=== PATIENT | female | born 1985 | race Caucasian/White ===

== ENCOUNTER 2022-06-25 03:28 | Inpatient (IN) ==
[2022-06-25 04:19] LABS: Basophils # (auto) 0.05 K/uL (0-0.2); Basophils % (auto) 0.5 %; Eosinophils # (auto) 0.01 K/uL (0-0.50); Eosinophils % (auto) 0.1 %; Hematocrit (blood only) 42.8 % (34.1-44.9); Hemoglobin 14.4 g/dl (12.0-16.0); Immature Granulocytes # (auto) 0.02 K/uL (0.00-0.02); Immature Granulocytes % (auto) 0.2 %; Lymphocytes # (auto) 2.01 K/uL (1.2-3.4); Lymphocytes % (auto) 21.8 %; Mean Corpuscular Hemoglobin 29.3 pg (25.0-34.0); Mean Corpuscular Hgb Conc 33.6 g/dL (32.0-36.0); Mean Platelet Volume 9.7 fL (9.4-12.3); Monocytes # (auto) 0.49 K/uL (0.24-0.82); Monocytes % (auto) 5.3 %; Neutrophils # (auto) 6.63 K/uL (1.4-6.5); Neutrophils % (auto) 72.1 %; Platelet Count 316 K/uL (130-400); RDW Coefficient of Variation 12.9 % (11.5-14.5); RDW Standard Deviation 41.7 fL (36.4-46.3); Red Blood Count 4.92 M/uL (3.93-5.22); White Blood Count 9.21 K/ul (4.8-10.8)
[2022-06-25] MEDS ORDERED: SODIUM CHLORIDE 0.9% 1000ML 500 ML IV ONE (04:35)
[2022-06-25] MEDS ORDERED: SODIUM CHLORIDE 0.9% 500 ML IV ONE (04:42)
[2022-06-25 04:45] LABS: Albumin Globulin Ratio 1.6 (0.9-2); Albumin Level 4.8 gm/dl (3.4-5.0); BUN Creatinine Ratio 22.8 (10-20); Bilirubin,Total 1.2 mg/dl (0.2-1.0); Calcium 9.5 mg/dl (8.5-10.1); Creatinine Clr Calc Pharmacy 130.2 ml/min; Est GFR (African American) 140.2 ml/min; Potassium 3.4 mmol/L (3.5-5.1); Total Protein 7.8 gm/dl (6.0-8.3)
[2022-06-25 04:50] LABS: Acetaminophen < 3 ug/ml (10-30); Salicylate < 3.0 mg/dl (3.0-30)
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
[2022-06-25] MEDS ORDERED: fentaNYL citrate 100 MCG/2 ML VIAL IV STA (06:10)
[2022-06-25 06:40] LABS: Appearance Urine Cloudy (Clear); Bacteria Urine Automated 1+ (Negative); Bilirubin Urine Negative (Negative); Blood Urine Trace (Negative); Color Urine Yellow; Epithelial Cell Urine Auto >30 /lpf (0-5); Glucose Urine UA Negative (Negative); Ketones Urine Trace (Negative); Leukocyte Esterase Urine Negative (Negative); Nitrite Urine Negative (Negative); Protein Urine Negative (Negative); RBC Urine Automated 0-4 /hpf (0-4); Specific Gravity Urine 1.025 (1.000-1.030); Urobilinogen Urine Negative (Negative); pH Urine 5.5 (4.5-7.5)
[2022-06-25 07:21] LABS: Amphetamines+Metham, Urine Neg (Neg); Barbiturates, Urine Neg (Neg); Benzodiazepine, Urine Neg (Neg); Cocaine, Urine Neg (Neg); MDMA (Ecstacy), Urine Neg (Neg); Methadone, Urine Neg (Neg); Opiate, Urine Pos (Neg); Phencyclidine, Urine Neg (Neg)
[2022-06-25 08:23] LABS: Pregnancy Test, Serum Negative (Negative)
[2022-06-25] MEDS ORDERED: hydrOXYzine HCl 25 MG TAB PO PRN ×2 (09:42)
[2022-06-25] MEDS ORDERED: SODIUM CHLORIDE 0.65% NA SOLN 45 ML (OCEAN) PRN (09:42)
[2022-06-25] MEDS ORDERED: ALUMINUM/MAGNESIUM SUSP 30 ML UDC PO PRN (09:42)
[2022-06-25] MEDS ORDERED: MAGNESIUM HYDROXIDE SUSP 30 ML UDC PO PRN (09:42)
[2022-06-25] MEDS ORDERED: BISMUTH SUBSALICYLATE LIQD 236 ML PO PRN (09:42)
[2022-06-25] MEDS ORDERED: ALPRAZolam 0.5 MG TABLET PO STA ×2 (10:42→10:46)
[2022-06-25] MEDS ORDERED: ALPRAZolam 0.5 MG TABLET PO PRN ×2 (10:43→11:21)
[2022-06-25] MEDS ORDERED: Ativan PO Alcohol Withdrawal--Active Protocol PO PRN (11:22)
[2022-06-25] MEDS ORDERED: LORazepam 1 MG TAB PO PRN ×3 (11:22)
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
--- NOTE | 2022-06-25 14:02 | Emergency Department Note ---
ED Visit Note I received this patient in signout at the change of shift from Dr. Paula pending evaluation from 3 S. for inpatient psychiatric admission. The patient was excepted on a voluntary basis for inpatient care. Patient was given 0.5 mg of Xanax orally at the request of psychiatry. Please refer to previous documentation for further details of the history, physical and visit. .
--- NOTE | 2022-06-25 15:27 | Electrocardiogram Report ---
Test Reason : Blood Pressure : / mmHG Vent. Rate : 086 BPM Atrial Rate : 086 BPM P-R Int : 118 ms QRS Dur : 092 ms QT Int : 374 ms P-R-T Axes : 039 053 029 degrees QTc Int : 447 ms Sinus rhythm with marked sinus arrhythmia Diffuse Minor Nonspecific ST and T wave abnormality Abnormal ECG No previous ECGs available Confirmed by Ziggy Austin ([id number]) on 06/25/2022 3:27:16 PM Referred By: REFERRED SELF Confirmed By:Ziggy Austin
[2022-06-26] MEDS: LITHIUM CARBONATE 300 MG TAB PO SCH ×2 (13:53→20:48)
--- NOTE | 2022-06-26 15:26 | Psychiatric Progress Note ---
Date of Service June 26, 2022 Impression / Recommendations Impression 36 yo female with a hx of PTSD, depression, emotional dysregulation and poor response to medications which could suggest bipolar spectrum disorder. Presentation remains paranoia and tangential with pressured speech c/w funmilayo. (1) Bipolar 1 disorder: (2) Suicide attempt by drug overdose: (3) Anxiety disorder, unspecified: (4) Posttraumatic stress disorder: Plan 06/26/22: Risks/benefits/alternatives reviewed lithium for mood stabilization. Discussion included but was not limited to risks of toxicity in overdose and need for ongoing blood monitoring (levels, kidney function, and thyroid). The patient was made aware to avoid regular use of NSAIDs as can increase levels and that lithium may need to be held during GI or other illnesses that result in d ehydration. Discussed teratogenecity and would advise reliable control. At this point she is only agreeable to take 150 mg BID and reevaluate dosing of lithium tomorrow. Will defer EKG as paranoid and age is <40. 06/25/22: The patient was admitted to the [facility] ([facility] mental health unit) on q15 min checks (behavioral with suicide precautions) for safety. The patient will participate in group, recreational, and milieu therapies and will be offered additional individual and family sessions as clinically appropriate. Patient was in need of immediate prn to ease transition to unit pending additional history/discussion. Given Xanax 0.5 mg q6 hr prn for anxiety with benefit. MNPR given emotional lability and need to further delineate degree of paranoia associated with probable complex PTSD. AWSS protocol for monitoring as patient unable to give accurate hx at this time. Inventory Assets Strengths: family support, knowledgeable re: medications Needs: medication management, improve coping Suicide Risk Level Suicide Risk Level: High-Moderate (q15 min suicide checks) Risk Factors Assessment : Yes Do You Have Access To A Gun?: Yes (at least in past per mother, need to confirm) Mental Health Diagnoses: Yes Previous Attempt: Yes Previous Psychiatric Hospitalization: Yes Protective Factors Assessment Employed: No Supportive Family: Yes Interval History Identifying Information ALLISON BIGGS is a 36-year-old F from [place], has a history of a prior suicide attempt, and was admitted on 06/25/22 09:42 on a 201 voluntary commitment following an intentional OD. Chief Complaint "I just can't trust, wait did we talk about that? I want to make sure I maintain all my rights, is this being video taped?" Review of Systems Sleep Information Total Hours of Sleep: 7.75 Meal Information Percent Meal Consumed - Breakfast: 90 Percent Meal Consumed - Lunch: 75 Percent Meal Consumed - Dinner: 90 Subjective Subjective Patient was seen & assessed and interval progress reviewed with nursing and social work. No evidence of ETOH withdrawal. Has been paranoid, tangential, and hyperverbal. slept 7 3/4 hr. Patient asked if we can get her a new social security number but added she's not in witness protection. 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 Disorganized and hard to follow. After extensive discussion around medication consent asked nurse if someone was going to talk with her about the medication. She reconsented for lithium trial. Physical Exam Psychiatric Orientation: alert Apperance: + disheveled Eye Contact: + fair eye contact Motor Behavior: no abnormal motor movements Speech: + pressured speech Affect: + depressed affect and + tearful affect Mood: + depressed mood and + anxious mood Thought Process: + tangential thought process Thought Content: + paranoid Suicidal Thoughts: + reports suicidal thoughts (but no intent/plan on unit) Homicidal Thoughts: denies homicidal thoughts Hallucinations: no auditory hallucinations and no visual hallucinations Cognition: language grossly intact; + attention not intact Estimated Intelligence: consistent with education level Insight: + limited insight Judgement: + limited judgement Vital Signs (Past 24 Hours) Last Vital Signs Temp 37.0 C 06/26/22 10:15 Pulse 70 06/26/22 10:15 Resp 20 06/26/22 10:15 BP 125/84 06/26/22 10:15 Pulse Ox 99 06/26/22 10:15 O2 Del Method 06/26/22 10:15 Results & Data ([facility]) Current Inpatient Medications Current Inpatient Medications: Current Inpatient Medications Acetaminophen (Acetaminophen 325 Mg Tab) 650 mg PO Q4H PRN PRN Reason: Headache or Minor Fever Stop: 07/25/22 09:41 Al Hydrox/Mg Hydrox/Simethicone (Aluminum/Magnesium Susp 30 Ml Udc) 30 ml PO Q4H PRN PRN Reason: GI Upset Stop: 07/25/22 09:41 Alprazolam (Alprazolam 0.5 Mg Tablet) 0.5 mg PO Q6H PRN PRN Reason: Anxiety Stop: 07/25/22 11:20 Bismuth Subsalicylate (Bismuth Subsalicylate Liqd 236 Ml) 15 ml PO PRN PRN PRN Reason: Loose Stool Stop: 07/25/22 09:41 Hydroxyzine HCl (Hydroxyzine Hcl 25 Mg Tab) 50 mg PO HSZ PRN PRN Reason: Insomnia Stop: 07/25/22 09:41 Hydroxyzine HCl (Hydroxyzine Hcl 25 Mg Tab) 25 mg PO Q4H PRN PRN Reason: Anxiety Stop: 07/25/22 09:41 [place] Carbonate ([place] Carbonate 300 Mg Tab) 150 mg PO BID [place] Stop: 07/26/22 12:59 Last Admin: 06/26/22 13:53 Dose: 150 mg Magnesium Hydroxide (Magnesium Hydroxide Susp 30 Ml Udc) 30 ml PO DAILY PRN PRN Reason: Constipation Stop: 07/25/22 09:41 Sodium Chloride (Sodium Chloride 0.65% Na Soln 45 Ml ([place])) 1 - 2 sprays NA PRN PRN PRN Reason: Nasal Dryness/Congestion Stop: 07/25/22 09:41 Post Discharge Appointments Primary Care Physician Name Of Family Doctor: Fawn Mares
[2022-06-26] MEDS: ACETAMINOPHEN 325 MG TAB PO PRN (18:34)
[2022-06-27] MEDS: LITHIUM CARBONATE 300 MG TAB PO SCH ×2 (07:43→15:11)
[2022-06-27 08:42] LABS: Codeine Urine NEGATIVE ng/mL (<50); Hydrocodone Urine NEGATIVE ng/mL (<50); Hydromor Urine NEGATIVE ng/mL (<50); Morphine Urine NEGATIVE ng/mL (<50); Norhydrocodone Conf Ur NEGATIVE ng/mL (<50); Noroxycodone Urine >10000 ng/mL (<50); Oxycodone Urine >10000 ng/mL (<50); Oxymorph Urine 589 ng/mL (<50)
[2022-06-27] MEDS: ALPRAZolam 0.25 MG TABLET PO PRN ×2 (10:50→23:48)
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
[2022-06-27] MEDS ORDERED: LITHIUM CARBONATE SLOW REL 300 MG TAB PO SCH (22:00)
[2022-06-27] MEDS: ACETAMINOPHEN 325 MG TAB PO PRN (23:48)
[2022-06-28] MEDS: LITHIUM CARBONATE 300 MG TAB PO SCH (08:36)
[2022-06-28] MEDS ORDERED: LITHIUM CARBONATE 300 MG TAB PO ONE (10:36)
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
[2022-06-28] MEDS: LORazepam 0.5 MG TAB PO PRN (13:46)
[2022-06-28] MEDS: LITHIUM CARBONATE 450 MG TABCR PO SCH (21:20)
[2022-06-28] MEDS: LORazepam 0.5 MG TAB PO SCH (21:21)
[2022-06-29] MEDS: LITHIUM CARBONATE 450 MG TABCR PO SCH ×2 (09:04→20:27)
[2022-06-29] MEDS: ACETAMINOPHEN 325 MG TAB PO PRN ×2 (13:30→18:27)
--- NOTE | 2022-06-29 17:18 | Psychiatric Progress Note ---
Date of Service June 29, 2022 Impression / Recommendations Impression 36 yo female with a hx of PTSD, depression, emotional dysregulation and poor response to medications which could suggest bipolar spectrum disorder. Presentation remains paranoia and tangential with pressured speech c/w funmilayo vs mixed state presentation of BPAD versus complex PTSD. MNPR due to poor boundaries, history of trauma/uncomfortable around others 06/29/22: still with funmilayo but sleep improving a bit, still with difficulty with boundaries with peers. Tolerating higher dose of [place] and switch to lorazepam. (1) Bipolar 1 disorder: (2) Suicide attempt by drug overdose: (3) Anxiety disorder, unspecified: (4) Posttraumatic stress disorder: Plan 06/29/22: Continue with current medications and tx plan. 06/28/22: Increase [place] to 450mg BID, will get level on 07/03/22. Discontinue xanax and start ativan 0.25mg daily prn and 0.5mg qhs given history of significant sedation from 1mg of lorazepam in the past. 06/27/22: remains very selective re: medication due to paranoia, after much discussion she agreed to titrate lithium to 600 mg today, prefers to take 150 mg BID then 300 mg later hs at this time. Seems more comfortable to take Xanax regularly if has option of 0.25 mg dose. Patient is adamant that won't take atypical. Would check lithium level day 5 of 900 mg daily. 06/26/22: Risks/benefits/alternatives reviewed lithium for mood stabilization. Discussion included but was not limited to risks of toxicity in overdose and need for ongoing blood monitoring (levels, kidney function, and thyroid). The patient was made aware to avoid regular use of NSAIDs as can increase levels and that lithium may need to be held during GI or other illnesses that result in dehydration. Discussed teratogenecity and would advise reliable control. At this point she is only agreeable to take 150 mg BID and reevaluate dosing of lithium tomorrow. Will defer EKG as paranoid and age is <40. 06/25/22: The patient was admitted to the [facility] ([facility] mental health unit) on q15 min checks (behavioral with suicide precautions) for safety. The patient will participate in group, recreational, and milieu therapies and will be offered additional individual and family sessions as clinically appropriate. Patient was in need of immediate prn to ease transition to unit pending additional history/discussion. Given Xanax 0.5 mg q6 hr prn for anxiety with benefit. MNPR given emotional lability and need to further delineate degree of paranoia associated with probable complex PTSD. AWSS protocol for monitoring as patient unable to give accurate hx at this time. Inventory Assets Strengths: family support, knowledgeable re: medications Needs: medication management, improve coping Suicide Risk Level Suicide Risk Level: High-Moderate (q15 min suicide checks) (suicide attempt prior to admission and impulsivity given funmilayo but feels safe here and agrees to alert nursing should she develop SI with plan or intent or feel unable to remain safe here) Risk Factors Assessment : Yes Do You Have Access To A Gun?: Yes (at least in past per mother, need to confirm) Mental Health Diagnoses: Yes Previous Attempt: Yes Previous Psychiatric Hospitalization: Yes Protective Factors Assessment Employed: No Supportive Family: Yes Interval History Identifying Information VANIA BIGGS is a 36-year-old F from [place], has a history of a prior suicide attempt, and was admitted on 06/25/22 09:42 on a 201 voluntary commitment following an intentional OD. Chief Complaint "I'm a lot of different things, just sorting everything out". Review of Systems Sleep Information Total Hours of Sleep: 6.5 Sleep Comments: Meal Information Percent Meal Consumed - Breakfast: 75 Percent Meal Consumed - Lunch: 100 Percent Meal Consumed - Dinner: 100 Subjective Subjective Patient was seen & assessed and interval progress reviewed with treatment team nursing and social work. RN present during meeting with Vania per her preference. She feels she slept better with lorazepam last night. No side effects from lorazepam nor from higher dose of [place]. No tremor. She remains uncertain that BPAD is an accurate diagnosis especially given recent trauma but agrees that [place] is working well and wants to continue this. Very talkative and distracts peers at times but getting better at staying on task. Continues to have some loosening of associations telling me "I don't want to drown (regarding financial stressors), I was a great swimmer and did half iron Man competitions". Kindly got pizzas for peers on the unit last night. Continues to have challenging boundaries at times offering to a peer who is having [employer] issues. Physical Exam Psychiatric Orientation: alert and oriented x 3 Apperance: appropriately groomed and + disheveled Eye Contact: + fair eye contact Motor Behavior: no abnormal motor movements Speech: + pressured speech and normal rate/rhythm/volume of speech Affect: + depressed affect and + labile affect Mood: + depressed mood and + anxious mood Thought Process: + tangential thought process Thought Content: + preoccupation and + paranoid Suicidal Thoughts: + reports suicidal thoughts (but no intent/plan on unit) Homicidal Thoughts: denies homicidal thoughts Hallucinations: no auditory hallucinations and no visual hallucinations Cognition: language grossly intact; + attention not intact Estimated Intelligence: consistent with education level Insight: + limited insight Judgement: + limited judgement Vital Signs (Past 24 Hours) Last Vital Signs Temp 36.8 C 06/29/22 06:44 Pulse 98 H 06/29/22 06:44 Resp 16 06/29/22 06:44 BP 108/70 06/29/22 06:44 Pulse Ox 97 06/27/22 06:00 O2 Del Method 06/27/22 06:00 Results & Data ([facility]) Current Inpatient Medications Current Inpatient Medications: Current Inpatient Medications Acetaminophen (Acetaminophen 325 Mg Tab) 650 mg PO Q4H PRN PRN Reason: Headache or Minor Fever Stop: 07/25/22 09:41 Last Admin: 06/29/22 13:30 Dose: 650 mg Al Hydrox/Mg Hydrox/Simethicone (Aluminum/Magnesium Susp 30 Ml Udc) 30 ml PO Q4H PRN PRN Reason: GI Upset Stop: 07/25/22 09:41 Bismuth Subsalicylate (Bismuth Subsalicylate Liqd 236 Ml) 15 ml PO PRN PRN PRN Reason: Loose Stool Stop: 07/25/22 09:41 Hydroxyzine HCl (Hydroxyzine Hcl 25 Mg Tab) 50 mg PO HSZ PRN PRN Reason: Insomnia Stop: 07/25/22 09:41 Last Admin: 06/28/22 02:54 Dose: 50 mg Hydroxyzine HCl (Hydroxyzine Hcl 25 Mg Tab) 25 mg PO Q4H PRN PRN Reason: Anxiety Stop: 07/25/22 09:41 [place] Carbonate ([place] Carbonate 450 Mg Tabcr) 450 mg PO BID CATRACHITO Stop: 07/28/22 20:59 Last Admin: 06/29/22 09:04 Dose: 450 mg Lorazepam (Lorazepam 0.5 Mg Tab) 0.5 mg PO HS [place]ITO Stop: 07/28/22 21:59 Last Admin: 06/28/22 21:21 Dose: 0.5 mg Lorazepam (Lorazepam 0.5 Mg Tab) 0.25 mg PO DAILY PRN PRN Reason: Anxiety Stop: 07/28/22 10:35 Last Admin: 06/28/22 13:46 Dose: 0.25 mg Magnesium Hydroxide (Magnesium Hydroxide Susp 30 Ml Udc) 30 ml PO DAILY PRN PRN Reason: Constipation Stop: 07/25/22 09:41 Sodium Chloride (Sodium Chloride 0.65% Na Soln 45 Ml ([place])) 1 - 2 sprays NA PRN PRN PRN Reason: Nasal Dryness/Congestion Stop: 07/25/22 09:41 Post Discharge Appointments Primary Care Physician Name Of Family Doctor: Fawn Mares
[2022-06-29] MEDS: LORazepam 0.5 MG TAB PO SCH (20:27)
--- NOTE | 2022-06-30 08:57 | Psychiatric Progress Note ---
Date of Service June 30, 2022 Impression / Recommendations Impression 36 yo female with a hx of PTSD, depression, emotional dysregulation and poor response to medications which could suggest bipolar spectrum disorder. Presentation remains paranoia and tangential with pressured speech c/w funmilayo vs mixed state presentation of BPAD versus complex PTSD. MNPR due to poor boundaries, history of trauma/uncomfortable around others 06/30/22: ongoing funmilayo vs mixed state-more depressed and tearful today with increased irritability, still with difficulty with boundaries with peers. Tolerating higher dose of [place] and switch to lorazepam. (1) Bipolar 1 disorder: (2) Suicide attempt by drug overdose: (3) Anxiety disorder, unspecified: (4) Posttraumatic stress disorder: Plan 06/30/22: Continue with current medications and tx plan. 06/29/22: Continue with current medications and tx plan. 06/28/22: Increase [place] to 450mg BID, will get level on 07/03/22. Discontinue xanax and start ativan 0.25mg daily prn and 0.5mg qhs given history of significant sedation from 1mg of lorazepam in the past. 06/27/22: remains very selective re: medication due to paranoia, after much discussion she agreed to titrate lithium to 600 mg today, prefers to take 150 mg BID then 300 mg later hs at this time. Seems more comfortable to take Xanax regularly if has option of 0.25 mg dose. Patient is adamant that won't take atypical. Would check lithium level day 5 of 900 mg daily. 06/26/22: Risks/benefits/alternatives reviewed lithium for mood stabilization. Discussion included but was not limited to risks of toxicity in overdose and need for ongoing blood monitoring (levels, kidney function, and thyroid). The patient was made aware to avoid regular use of NSAIDs as can increase levels and that lithium may need to be held during GI or other illnesses that result in dehydration. Discussed teratogenecity and would advise reliable control. At this point she is only agreeable to take 150 mg BID and reevaluate dosing of lithium tomorrow. Will defer EKG as paranoid and age is <40. 06/25/22: The patient was admitted to the [facility] ([facility]) on q15 min checks (behavioral with suicide precautions) for safety. The patient will participate in group, recreational, and milieu therapies and will be offered additional individual and family sessions as clinically appropriate. Patient was in need of immediate prn to ease transition to unit pending additional history/discussion. Given Xanax 0.5 mg q6 hr prn for anxiety with benefit. MNPR given emotional lability and need to further delineate degree of paranoia associated with probable complex PTSD. AWSS protocol for monitoring as patient unable to give accurate hx at this time. Inventory Assets Strengths: family support, knowledgeable re: medications Needs: medication management, improve coping Suicide Risk Level Suicide Risk Level: High-Moderate (q15 min suicide checks) (suicide attempt prior to admission and impulsivity given funmilayo but feels safe here and agrees to alert nursing should she develop SI with plan or intent or feel unable to remain safe here) Risk Factors Assessment : Yes Do You Have Access To A Gun?: Yes (at least in past per mother, need to confirm) Mental Health Diagnoses: Yes Previous Attempt: Yes Previous Psychiatric Hospitalization: Yes Protective Factors Assessment Employed: No Supportive Family: Yes Interval History Identifying Information ALLISON BIGGS is a 36-year-old F from [place], has a history of a prior suicide attempt, and was admitted on 06/25/22 09:42 on a 201 voluntary commitment following an intentional OD. Chief Complaint "I'm fine". Review of Systems Sleep Information Total Hours of Sleep: 6 Meal Information Percent Meal Consumed - Breakfast: 75 Percent Meal Consumed - Lunch: 100 Percent Meal Consumed - Dinner: 100 Subjective Subjective Patient was seen & assessed and interval progress reviewed with treatment team nursing and social work. More isolative to her room last night. Less intrusive with peers but still with poor boundaries at times and some disorganized behaviors like lying in the hallway on the floor. No side effects to the medication. Tearful when meeting with her as she discusses recent trauma from job in [place] and feeling as though "nothing will ever fix all the stuff that's happened to me". More irritable. Physical Exam Psychiatric Orientation: alert and oriented x 3 Apperance: appropriately dressed and + disheveled Eye Contact: + fair eye contact Motor Behavior: no abnormal motor movements Speech: normal rate/rhythm/volume of speech Affect: + depressed affect, + tearful affect and + labile affect Mood: + depressed mood, + anxious mood and + irritable mood Thought Process: + tangential thought process Thought Content: + preoccupation and + paranoid Suicidal Thoughts: + reports suicidal thoughts (but no intent/plan on unit) Homicidal Thoughts: denies homicidal thoughts Hallucinations: no auditory hallucinations and no visual hallucinations Cognition: language grossly intact; + attention not intact Estimated Intelligence: consistent with education level Insight: + limited insight Judgement: + limited judgement Vital Signs (Past 24 Hours) Last Vital Signs Temp 37 C 06/30/22 06:50 Pulse 70 06/30/22 06:51 Resp 16 06/30/22 06:50 BP 120/51 L 06/30/22 06:51 Pulse Ox 97 06/27/22 06:00 O2 Del Method 06/27/22 06:00 Results & Data ([facility]) Current Inpatient Medications Current Inpatient Medications: Current Inpatient Medications Acetaminophen (Acetaminophen 325 Mg Tab) 650 mg PO Q4H PRN PRN Reason: Headache or Minor Fever Stop: 07/25/22 09:41 Last Admin: 06/29/22 18:27 Dose: 650 mg Al Hydrox/Mg Hydrox/Simethicone (Aluminum/Magnesium Susp 30 Ml Udc) 30 ml PO Q4H PRN PRN Reason: GI Upset Stop: 07/25/22 09:41 Bismuth Subsalicylate (Bismuth Subsalicylate Liqd 236 Ml) 15 ml PO PRN PRN PRN Reason: Loose Stool Stop: 07/25/22 09:41 Hydroxyzine HCl (Hydroxyzine Hcl 25 Mg Tab) 50 mg PO HSZ PRN PRN Reason: Insomnia Stop: 07/25/22 09:41 Last Admin: 06/28/22 02:54 Dose: 50 mg Hydroxyzine HCl (Hydroxyzine Hcl 25 Mg Tab) 25 mg PO Q4H PRN PRN Reason: Anxiety Stop: 07/25/22 09:41 [place] Carbonate ([place] Carbonate 450 Mg Tabcr) 450 mg PO BID CATRACHITO Stop: 07/28/22 20:59 Last Admin: 06/29/22 20:27 Dose: 450 mg Lorazepam (Lorazepam 0.5 Mg Tab) 0.5 mg PO HS CATRACHITO Stop: 07/28/22 21:59 Last Admin: 06/29/22 20:27 Dose: 0.5 mg Lorazepam (Lorazepam 0.5 Mg Tab) 0.25 mg PO DAILY PRN PRN Reason: Anxiety Stop: 07/28/22 10:35 Last Admin: 06/28/22 13:46 Dose: 0.25 mg Magnesium Hydroxide (Magnesium Hydroxide Susp 30 Ml Udc) 30 ml PO DAILY PRN PRN Reason: Constipation Stop: 07/25/22 09:41 Sodium Chloride (Sodium Chloride 0.65% Na Soln 45 Ml ([place])) 1 - 2 sprays NA PRN PRN PRN Reason: Nasal Dryness/Congestion Stop: 07/25/22 09:41 Post Discharge Appointments Primary Care Physician Name Of Family Doctor: Fawn Mares
[2022-06-30] MEDS: LITHIUM CARBONATE 450 MG TABCR PO SCH ×2 (09:15→21:40)
[2022-06-30] MEDS: LORazepam 0.5 MG TAB PO SCH (21:40)
--- NOTE | 2022-07-01 08:47 | Psychiatric Progress Note ---
Date of Service July 01, 2022 Impression / Recommendations Impression 36 yo female with a hx of PTSD, depression, emotional dysregulation and poor response to medications which could suggest bipolar spectrum disorder. Presentation remains paranoia and tangential with pressured speech c/w funmilayo vs mixed state presentation of BPAD versus complex PTSD. MNPR due to poor boundaries, history of trauma/uncomfortable around others 07/01/22: ongoing funmilayo vs mixed state-feels unable to cope with past traumatic events but agreeable to using medication to try to help with her mood, still with difficulty with boundaries with peers. Agrees to additional prn dose of lorazepam if needed for sleep. (1) Bipolar 1 disorder: (2) Suicide attempt by drug overdose: (3) Anxiety disorder, unspecified: (4) Posttraumatic stress disorder: Plan 07/01/22: Increase lorazepam to additional 0.5mg qhs prn dose. 06/30/22: Continue with current medications and tx plan. 06/29/22: Continue with current medications and tx plan. 06/28/22: Increase [place] to 450mg BID, will get level on 07/03/22. Discontinue xanax and start ativan 0.25mg daily prn and 0.5mg qhs given history of significant sedation from 1mg of lorazepam in the past. 06/27/22: remains very selective re: medication due to paranoia, after much discussion she agreed to titrate lithium to 600 mg today, prefers to take 150 mg BID then 300 mg later hs at this time. Seems more comfortable to take Xanax regularly if has option of 0.25 mg dose. Patient is adamant that won't take atypical. Would check lithium level day 5 of 900 mg daily. 06/26/22: Risks/benefits/alternatives reviewed lithium for mood stabilization. Discussion included but was not limited to risks of toxicity in overdose and need for ongoing blood monitoring (levels, kidney function, and thyroid). The patient was made aware to avoid regular use of NSAIDs as can increase levels and that lithium may need to be held during GI or other illnesses that result in dehydration. Discussed teratogenecity and would advise reliable control. At this point she is only agreeable to take 150 mg BID and reevaluate dosing of lithium tomorrow. Will defer EKG as paranoid and age is <40. 11/25/22: The patient was admitted to the [facility] ([facility] mental health unit) on q15 min checks (behavioral with suicide precautions) for safety. The patient will participate in group, recreational, and milieu therapies and will be offered additional individual and family sessions as clinically appropriate. Patient was in need of immediate prn to ease transition to unit pending additional history/discussion. Given Xanax 0.5 mg q6 hr prn for anxiety with benefit. MNPR given emotional lability and need to further delineate degree of paranoia associated with probable complex PTSD. AWSS protocol for monitoring as patient unable to give accurate hx at this time. Inventory Assets Strengths: family support, knowledgeable re: medications Needs: medication management, improve coping Suicide Risk Level Suicide Risk Level: High-Moderate (q15 min suicide checks) (suicide attempt prior to admission and impulsivity given funmilayo/mixed state but feels safe here and agrees to alert nursing should she develop SI with plan or intent or feel unable to remain safe here) Risk Factors Assessment : Yes Do You Have Access To A Gun?: Yes (at least in past per mother, need to confirm) Mental Health Diagnoses: Yes Previous Attempt: Yes Previous Psychiatric Hospitalization: Yes Protective Factors Assessment Employed: No Supportive Family: Yes Interval History Identifying Information ALLISON BIGGS is a 36-year-old F from [place], has a history of a prior suicide attempt, and was admitted on 06/25/22 09:42 on a 201 voluntary commitment following an intentional OD. Chief Complaint "I'm ok it's all a lot". Review of Systems Sleep Information Total Hours of Sleep: 6 Meal Information Percent Meal Consumed - Breakfast: 90 Percent Meal Consumed - Lunch: 100 Percent Meal Consumed - Dinner: 90 Subjective Subjective Patient was seen & assessed and interval progress reviewed with treatment team nursing and social work. Remains very intrusive with peers at times including making inappropriate/overly personal comments to peers. Completed CM intake. Tearful at times. Continues to discuss detrimental impact of recent and past trauma on her mood. Worried about finances, she wondered about short term disability. Had some trouble falling asleep last night and new patient admitted to unit so requests additional ativan be available. Physical Exam Psychiatric Orientation: alert and oriented x 3 Apperance: appropriately dressed and + disheveled Eye Contact: + fair eye contact Motor Behavior: no abnormal motor movements Speech: + pressured speech and normal rate/rhythm/volume of speech Affect: + depressed affect, + tearful affect and + labile affect Mood: + depressed mood, + anxious mood and + irritable mood Thought Process: + tangential thought process Thought Content: + preoccupation and + paranoid Suicidal Thoughts: + reports suicidal thoughts (but no intent/plan on unit) Homicidal Thoughts: denies homicidal thoughts Hallucinations: no auditory hallucinations and no visual hallucinations Cognition: language grossly intact; + attention not intact Estimated Intelligence: consistent with education level Insight: + limited insight Judgement: + limited judgement Vital Signs (Past 24 Hours) Last Vital Signs Temp 36.9 C 07/01/22 06:35 Pulse 93 H 07/01/22 06:36 Resp 16 07/01/22 06:35 BP 102/70 07/01/22 06:36 Pulse Ox 97 06/27/22 06:00 O2 Del Method 06/27/22 06:00 Results & Data ([facility]) Current Inpatient Medications Current Inpatient Medications: Current Inpatient Medications Acetaminophen (Acetaminophen 325 Mg Tab) 650 mg PO Q4H PRN PRN Reason: Headache or Minor Fever Stop: 07/25/22 09:41 Last Admin: 06/29/22 18:27 Dose: 650 mg Al Hydrox/Mg Hydrox/Simethicone (Aluminum/Magnesium Susp 30 Ml Udc) 30 ml PO Q4H PRN PRN Reason: GI Upset Stop: 07/25/22 09:41 Bismuth Subsalicylate (Bismuth Subsalicylate Liqd 236 Ml) 15 ml PO PRN PRN PRN Reason: Loose Stool Stop: 07/25/22 09:41 Hydroxyzine HCl (Hydroxyzine Hcl 25 Mg Tab) 50 mg PO HSZ PRN PRN Reason: Insomnia Stop: 07/25/22 09:41 Last Admin: 06/28/22 02:54 Dose: 50 mg Hydroxyzine HCl (Hydroxyzine Hcl 25 Mg Tab) 25 mg PO Q4H PRN PRN Reason: Anxiety Stop: 07/25/22 09:41 [place] Carbonate ([place] Carbonate 450 Mg Tabcr) 450 mg PO BID CATRACHITO Stop: 07/28/22 20:59 Last Admin: 06/30/22 21:40 Dose: 450 mg Lorazepam (Lorazepam 0.5 Mg Tab) 0.5 mg PO HS CATRACHITO Stop: 07/28/22 21:59 Last Admin: 06/30/22 21:40 Dose: 0.5 mg Lorazepam (Lorazepam 0.5 Mg Tab) 0.25 mg PO DAILY PRN PRN Reason: Anxiety Stop: 07/28/22 10:35 Last Admin: 06/28/22 13:46 Dose: 0.25 mg Magnesium Hydroxide (Magnesium Hydroxide Susp 30 Ml Udc) 30 ml PO DAILY PRN PRN Reason: Constipation Stop: 07/25/22 09:41 Sodium Chloride (Sodium Chloride 0.65% Na Soln 45 Ml ([place])) 1 - 2 sprays NA PRN PRN PRN Reason: Nasal Dryness/Congestion Stop: 07/25/22 09:41 Post Discharge Appointments Primary Care Physician Name Of Family Doctor: Fawn Mares
[2022-07-01] MEDS: LITHIUM CARBONATE 450 MG TABCR PO SCH ×2 (09:07→20:55)
[2022-07-01] MEDS ORDERED: LORazepam 0.5 MG TAB PO PRN (17:35)
[2022-07-01] MEDS: LORazepam 0.5 MG TAB PO PRN (17:41)
[2022-07-01] MEDS: LORazepam 0.5 MG TAB PO SCH (20:55)
[2022-07-02] MEDS: LITHIUM CARBONATE 450 MG TABCR PO SCH ×2 (09:05→20:43)
--- NOTE | 2022-07-02 16:16 | Psychiatric Progress Note ---
Date of Service July 02, 2022 Impression / Recommendations Impression 36 yo female with a hx of PTSD, depression, emotional dysregulation and poor response to medications which could suggest bipolar spectrum disorder. Presentation remains paranoia and tangential with pressured speech c/w funmilayo vs mixed state presentation of BPAD versus complex PTSD. MNPR due to poor boundaries, history of trauma/uncomfortable around others 07/02/22: ongoing funmilayo vs mixed state and discussing more about past and recent trauma, remains difficult to appreciate how much this may be impacting mood changes vs how much due to symptoms of funmilayo. Still with difficulty with boundaries with peers. Agrees to additional scheduled dose of lorazepam in the afternoon given pattern of increased irritability in the late afternoon. I also spent 30 minutes completing paperwork related to FMLA/short-term disability for her. (1) Bipolar 1 disorder: (2) Suicide attempt by drug overdose: (3) Anxiety disorder, unspecified: (4) Posttraumatic stress disorder: Plan 07/02/22: Add scheduled lorazepam dose of 0.25mg q afternoon at 1600. Li level tomorrow morning. 07/01/22: Increase lorazepam to additional 0.5mg qhs prn dose. 06/30/22: Continue with current medications and tx plan. 06/29/22: Continue with current medications and tx plan. 06/28/22: Increase [place] to 450mg BID, will get level on 07/03/22. Discontinue xanax and start ativan 0.25mg daily prn and 0.5mg qhs given history of significant sedation from 1mg of lorazepam in the past. 06/27/22: remains very selective re: medication due to paranoia, after much discussion she agreed to titrate lithium to 600 mg today, prefers to take 150 mg BID then 300 mg later hs at this time. Seems more comfortable to take Xanax regularly if has option of 0.25 mg dose. Patient is adamant that won't take atypical. Would check lithium level day 5 of 900 mg daily. 06/26/22: Risks/benefits/alternatives reviewed lithium for mood stabilization. Discussion included but was not limited to risks of toxicity in overdose and need for ongoing blood monitoring (levels, kidney function, and thyroid). The patient was made aware to avoid regular use of NSAIDs as can increase levels and that lithium may need to be held during GI or other illnesses that result in dehydration. Discussed teratogenecity and would advise reliable control. At this point she is only agreeable to take 150 mg BID and reevaluate dosing of lithium tomorrow. Will defer EKG as paranoid and age is <40. 06/25/22: The patient was admitted to the [facility] ([facility] health unit) on q15 min checks (behavioral with suicide precautions) for safety. The patient will participate in group, recreational, and milieu therapies and will be offered additional individual and family sessions as clinically appropriate. Patient was in need of immediate prn to ease transition to unit pending additional history/discussion. Given Xanax 0.5 mg q6 hr prn for anxiety with benefit. MNPR given emotional lability and need to further delineate degree of paranoia associated with probable complex PTSD. AWSS protocol for monitoring as patient unable to give accurate hx at this time. Inventory Assets Strengths: family support, knowledgeable re: medications Needs: medication management, improve coping Suicide Risk Level Suicide Risk Level: High-Moderate (q15 min suicide checks) (suicide attempt prior to admission and impulsivity given funmilayo/mixed state but denies SI and feels safe here and agrees to alert nursing should she develop SI with plan or intent or feel unable to remain safe here) Risk Factors Assessment : Yes Do You Have Access To A Gun?: Yes (at least in past per mother, need to confirm) Mental Health Diagnoses: Yes Previous Attempt: Yes Previous Psychiatric Hospitalization: Yes Protective Factors Assessment Employed: No Supportive Family: Yes Interval History Identifying Information ALLISON BIGGS is a 36-year-old F from [place], has a history of a prior suicide attempt, and was admitted on 06/25/22 09:42 on a 201 voluntary commitment following an intentional OD. Chief Complaint "I get a lot more sensitive to sensations, sounds, people bother me more in the afternoons I don't know why". Review of Systems Sleep Information Total Hours of Sleep: 7.5 Meal Information Percent Meal Consumed - Breakfast: 100 Percent Meal Consumed - Lunch: 100 Percent Meal Consumed - Dinner: 80 Subjective Subjective Patient was seen & assessed and interval progress reviewed with treatment team nursing and social work. Pacing at times, more irritable in the late afternoons and early evening last night. Today discusses ongoing impact of past trauma on her mood including feeling that she would like to find a support group for people who have been in relationships with narcissists. Appreciative that I am willing to complete some of her disability/FMLA paperwork regarding her diagnosis and hospitalization. Agrees to additional afternoon scheduled dose of ativan to help with anxiety/sensory sensitivities toward peers. Physical Exam Psychiatric Orientation: alert and oriented x 3 Apperance: appropriately dressed and appropriately groomed Eye Contact: + fair eye contact Motor Behavior: no abnormal motor movements Speech: + abnormal rate/rhythm/volume of speech (slightly rapid) Affect: + depressed affect, + tearful affect and + labile affect Mood: + depressed mood, + anxious mood and + irritable mood Thought Process: + tangential thought process Thought Content: + preoccupation and + paranoid Suicidal Thoughts: denies suicidal thoughts Homicidal Thoughts: denies homicidal thoughts Hallucinations: no auditory hallucinations and no visual hallucinations Cognition: language grossly intact; + attention not intact Estimated Intelligence: consistent with education level Insight: + limited insight Judgement: + limited judgement Vital Signs (Past 24 Hours) Last Vital Signs Temp 36.8 C 07/02/22 06:00 Pulse 95 H 07/02/22 06:39 Resp 16 07/02/22 06:00 BP 119/86 07/02/22 06:39 Pulse Ox 99 07/02/22 06:00 O2 Del Method 07/02/22 06:00 Results & Data ([facility]) Current Inpatient Medications Current Inpatient Medications: Current Inpatient Medications Acetaminophen (Acetaminophen 325 Mg Tab) 650 mg PO Q4H PRN PRN Reason: Headache or Minor Fever Stop: 07/25/22 09:41 Last Admin: 06/29/22 18:27 Dose: 650 mg Al Hydrox/Mg Hydrox/Simethicone (Aluminum/Magnesium Susp 30 Ml Udc) 30 ml PO Q4H PRN PRN Reason: GI Upset Stop: 07/25/22 09:41 Bismuth Subsalicylate (Bismuth Subsalicylate Liqd 236 Ml) 15 ml PO PRN PRN PRN Reason: Loose Stool Stop: 07/25/22 09:41 Hydroxyzine HCl (Hydroxyzine Hcl 25 Mg Tab) 50 mg PO HSZ PRN PRN Reason: Insomnia Stop: 07/25/22 09:41 Last Admin: 06/28/22 02:54 Dose: 50 mg Hydroxyzine HCl (Hydroxyzine Hcl 25 Mg Tab) 25 mg PO Q4H PRN PRN Reason: Anxiety Stop: 07/25/22 09:41 [place] Carbonate ([place] Carbonate 450 Mg Tabcr) 450 mg PO BID CATR[place]ITO Stop: 07/28/22 20:59 Last Admin: 07/02/22 09:05 Dose: 450 mg Lorazepam (Lorazepam 0.5 Mg Tab) 0.25 mg PO DAILY PRN PRN Reason: Anxiety Stop: 07/28/22 10:35 Last Admin: 07/01/22 17:41 Dose: 0.25 mg Lorazepam (Lorazepam 0.5 Mg Tab) 0.5 mg PO HS PRN PRN Reason: insomnia-1st choice Stop: 07/31/22 17:34 Lorazepam (Lorazepam 0.5 Mg Tab) 0.5 mg PO DAILY@2100 CATRACHITO Stop: 07/31/22 20:59 Last Admin: 07/01/22 20:55 Dose: 0.5 mg Magnesium Hydroxide (Magnesium Hydroxide Susp 30 Ml Udc) 30 ml PO DAILY PRN PRN Reason: Constipation Stop: 07/25/22 09:41 Sodium Chloride (Sodium Chloride 0.65% Na Soln 45 Ml ([place])) 1 - 2 sprays NA PRN PRN PRN Reason: Nasal Dryness/Congestion Stop: 07/25/22 09:41 Mental Health & Subst Abuse Tx Psychiatrist Name of Psychiatrist: [facility] - Dr. Moody Psychiatrist's Date of Appointment with Psychiatrist: 07/21/22 Time of Appointment with Psychiatrist: 8:30 AM Psychiatric Appointment Comment: Telemedicine - link will be in your email. Therapist Name of Therapist: [facility] - Nereyda Jung Therapist's Therapy Appointment Comment: [address], [facility] [id number] Multimedia Coordinator Name of Multimedia Coordinator: [employer] Post Discharge Appointments Primary Care Physician Name Of Family Doctor: [facility] - Dr. Fawn Mares Primary Care Time of Appointment with PCP: Please follow up with PCP as needed. Provider Appointment Comment: [phone], [place] [address] Contact Information Discharge Discharge Address: [facility] [place][note 2] [facility] [id number]
[2022-07-02] MEDS: LORazepam 0.5 MG TAB PO SCH ×2 (17:37→20:43)
[2022-07-03 06:45] VITALS: O2SAT 98
[2022-07-03] MEDS: LITHIUM CARBONATE 450 MG TABCR PO SCH ×2 (11:07→20:28)
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
[2022-07-03] MEDS: LORazepam 0.5 MG TAB PO SCH ×2 (16:07→20:27)
[2022-07-03] MEDS: LITHIUM CARBONATE 300 MG TAB PO SCH (20:28)
[2022-07-04] MEDS: LITHIUM CARBONATE 450 MG TABCR PO SCH ×2 (09:17→20:48)
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
[2022-07-04] MEDS: LORazepam 0.5 MG TAB PO SCH ×2 (16:25→20:49)
[2022-07-04] MEDS: LITHIUM CARBONATE 300 MG TAB PO SCH (20:48)
[2022-07-05] MEDS: LITHIUM CARBONATE 450 MG TABCR PO SCH ×2 (08:56→20:26)
[2022-07-05] MEDS ORDERED: LORazepam 0.5 MG TAB PO PRN (11:47)
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
[2022-07-05] MEDS: LITHIUM CARBONATE 300 MG TAB PO SCH (20:26)
[2022-07-05] MEDS: LORazepam 0.5 MG TAB PO SCH (20:26)
[2022-07-06 06:43] VITALS: BP 98/64; TEMP 98.4
[2022-07-06] MEDS: LITHIUM CARBONATE 450 MG TABCR PO SCH (09:04)
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
[2022-07-06 10:04] VITALS: PULSE 70
== END 2022-07-06 10:30 | disposition home or self-care (01) | DRG 918 ==
LOC: ED 03:28 → SUATTDRO 09:42 → 3S 09:42